=== PATIENT | male | born 1960 | race African-American/Black ===

== ENCOUNTER 2018-03-07 12:40 | Emergency (ER) | payer SELFPAY ==
[2018-03-07] MEDS ORDERED: MAGNESIUM SULFATE/D5W 1 GM/100 ML RTUPB IV ONE (13:11)
[2018-03-07] MEDS ORDERED: METHYLPREDNISOLONE INJ 125 MG/2 ML SDV IV ONE (13:11)
[2018-03-07] MEDS ORDERED: IPRATROPIUM/ALBUTEROL 0.5-2.5 MG/3 ML AMPUL NEB ONE (13:11)
--- NOTE | 2018-03-07 13:13 | ER Document Report ---
ED Medical Screen (RME) - General Chief Complaint: Chest Pain Stated Complaint: COUGH,CONGESTION,SIDE PAIN Time Seen by Provider: 03/07/18 13:08 - HPI Notes: 03/07/18 13:12 History of chronic bronchitis states productive cough chest pain with coughing for the last few days - Related Data Allergies/Adverse Reactions: No Known Allergies Allergy (Verified 07/04/11 17:06) Past Medical History - Past Medical History Cardiac Medical History: Reports: Hx Hypercholesterolemia, Hx Hypertension Pulmonary Medical History: Reports: Hx Bronchitis, Hx Pneumonia - X2 Renal/ Medical History: Denies: Hx Peritoneal Dialysis - Immunizations Hx Diphtheria, Pertussis, Tetanus Vaccination: Yes Review of Systems - Review of Systems Respiratory: Cough, Short of breath, Wheezing -: Yes All other systems reviewed and negative Physical Exam - Vital signs Vitals: Temp Pulse Resp BP Pulse Ox 98.5 F 74 18 152/78 H 97 03/07/18 12:43 03/07/18 12:43 03/07/18 12:43 03/07/18 12:43 03/07/18 12:43 - Respiratory Respiratory status: No respiratory distress Chest status: Nontender Breath sounds: Wheezing - Cardiovascular Rhythm: Regular Heart sounds: Normal auscultation Course - Vital Signs Vital signs: Temp Pulse Resp BP Pulse Ox 98.5 F 74 18 152/78 H 97 03/07/18 12:43 03/07/18 12:43 03/07/18 12:43 03/07/18 12:43 03/07/18 12:43 Doctor's Discharge - Discharge Referrals: LOCALMD,NO [Primary Care Provider] - Follow up as needed
[2018-03-07 13:58] LABS: ANION GAP 14 (5-19); BLOOD UREA NITROGEN 10 mg/dL (7-20); CALCIUM 9.8 mg/dL (8.4-10.2); CARBON DIOXIDE 26 mmol/L (22-30); CHLORIDE 102 mmol/L (98-107); GLUCOSE 97 mg/dL (75-110); SODIUM 141.9 mmol/L (137-145)
[2018-03-07 14:28] LABS: ABSOLUTE EOSINOPHILS # (AUTO) 0.2 10^3/uL (0.0-0.6); ABSOLUTE LYMPHOCYTES (AUTO) 1.4 10^3/uL (0.5-4.7); ABSOLUTE MONOCYTES (AUTO) 0.6 10^3/uL (0.1-1.4); ABSOLUTE NEUT (AUTO) 2.1 10^3/uL (1.7-8.2); BASOPHILS % (AUTO) 0.3 % (0-2); EOSINOPHILS % (AUTO) 4.1 % (0-6); HEMATOCRIT 45.1 % (37.9-51.0); HEMOGLOBIN 14.9 g/dL (13.5-17.0); LYMPHOCYTES % (AUTO) 32.2 % (13-45); MEAN CORPUSCULAR HEMOGLOBIN 27.5 pg (27.0-33.4); MEAN CORPUSCULAR VOLUME 83 fl (80-97); PLATELET COUNT 197 10^3/uL (150-450); RED BLOOD COUNT 5.41 10^6/uL (4.35-5.55); RED CELL DISTRIBUTION WIDTH 14.5 % (11.5-14.0); SEGMENTED NEUTROPHILS % (AUTO) 49.4 % (42-78); TOTAL CELLS COUNTED % (AUTO) 100 %; WHITE BLOOD COUNT 4.2 10^3/uL (4.0-10.5)
--- NOTE | 2018-03-07 14:37 | ER Document Report ---
ED General - General Chief Complaint: Chest Pain Stated Complaint: COUGH,CONGESTION,SIDE PAIN Time Seen by Provider: 03/07/18 13:08 Notes: 57-year-old male to the emergency department for evaluation of shortness of breath and chest pain. Symptoms have been present on and off for several days. Patient has a long-standing history of chronic bronchitis and pneumonia. Has had pneumonia approximately 5 times. Sent over here by his primary care doctor for further evaluate. Currently not on antibiotics. Has had some intermittent fever and chills at home. Pain is located in the central portion of his chest. Hurts to breathe. No prior history of DVT or pulmonary embolism. Patient does smoke. Does have hypertension. Also complaining of a headache earlier today but none present at this time. - HPI Onset: Yesterday Onset/Duration: Gradual, Worse Quality of pain: Sharp Severity: Moderate Pain Level: 3 Associated symptoms: Body/muscle aches, Chest pain, Nonproductive cough, Fever, Hurts to breath, Shortness of breath Exacerbated by: Deep breathing Similar symptoms previously: Yes Recently seen / treated by doctor: Yes - Related Data Allergies/Adverse Reactions: No Known Allergies Allergy (Verified 07/04/11 17:06) Past Medical History - General Information source: Patient - Social History Smoking Status: Current Every Day Smoker Cigarette use (# per day): Yes Frequency of alcohol use: None Drug Abuse: None Lives with: Family Family History: Reviewed & Not Pertinent Patient has suicidal ideation: No Patient has homicidal ideation: No - Past Medical History Cardiac Medical History: Reports: Hx Hypercholesterolemia, Hx Hypertension Pulmonary Medical History: Reports: Hx Bronchitis, Hx Pneumonia - X2 Renal/ Medical History: Denies: Hx Peritoneal Dialysis - Immunizations Hx Diphtheria, Pertussis, Tetanus Vaccination: Yes Review of Systems - Review of Systems Notes: Constitutional: denies: Chills, Diaphoresis,. Complaining of intermittent fevers EENT: denies: Eye discharge, Blurred vision, Tearing, Double vision, Nose congestion, Nose discharge, Throat swelling, Mouth pain Cardiovascular: denies: Palpitations, Heart racing, Orthopnea, Dyspnea, Chest pain Respiratory: Complaining of cough, shortness of breath, wheezing and pain with deep breathing Gastrointestinal: denies: Abdominal pain, Diarrhea, Nausea, Vomiting, Black stools, bright red blood in stool Genitourinary: denies: Burning, Dysuria, Discharge, Frequency, Flank pain, Hematuria Musculoskeletal: denies: Joint pain, Joint swelling, Muscle pain, Muscle stiffness, back pain Hematologic/Lymphatic: denies: Anemia, Easy bleeding, Easy bruising, Blood clots Neurological/Psychological: denies: Confusion, Dementia, Depression, Loss of consciousness Skin: No lesions, no masses, no skin breakdown, no abscesses Physical Exam - Vital signs Vitals: Temp Pulse Resp BP Pulse Ox 98.5 F 74 18 152/78 H 97 03/07/18 12:43 03/07/18 12:43 03/07/18 12:43 03/07/18 12:43 03/07/18 12:43 Interpretation: Hypertensive. No: Hypoxic, Tachypneic, Febrile - General General appearance: Appears well, Alert - HEENT Head: Normocephalic, Atraumatic Eyes: Normal Pupils: PERRL - Respiratory Respiratory status: No respiratory distress Chest status: Nontender Breath sounds: Rhonchi - Faint rhonchi bilaterally Chest palpation: Normal - Cardiovascular Rhythm: Regular Heart sounds: Normal auscultation Murmur: No - Abdominal Inspection: Normal Distension: No distension Bowel sounds: Normal Tenderness: Nontender Organomegaly: No organomegaly - Back Back: Normal, Nontender - Extremities General upper extremity: Normal inspection, Nontender, Normal color, Normal ROM , Normal temperature General lower extremity: Normal inspection, Nontender, Normal color, Normal ROM , Normal temperature, Normal weight bearing. No: Jacek's sign - Neurological Neuro grossly intact: Yes Cognition: Normal Orientation: AAOx4 [place] Coma Scale Eye Opening: Spontaneous [place] Coma Scale Verbal: Oriented [place] Coma Scale Motor: Obeys Commands [place] Coma Scale Total: 15 Speech: Normal Motor strength normal: LUE, RUE, LLE, RLE Sensory: Normal - Psychological Associated symptoms: Normal affect, Normal mood - Skin Skin Temperature: Warm Skin Moisture: Dry Skin Color: Normal Course - Re-evaluation Re-evalutation: 03/07/18 15:10 Laboratory 03/07/18 03/07/18 03/07/18 13:21 13:21 13:21 WBC 4.2 RBC 5.41 Hgb 14.9 Hct 45.1 MCV 83 MCH 27.5 MCHC 33.0 RDW 14.5 H Plt Count 197 Seg Neutrophils % 49.4 Lymphocytes % 32.2 Monocytes % 14.0 H Eosinophils % 4.1 Basophils % 0.3 Absolute Neutrophils 2.1 Absolute Lymphocytes 1.4 Absolute Monocytes 0.6 Absolute Eosinophils 0.2 Absolute Basophils 0.0 Sodium 141.9 Potassium 4.0 Chloride 102 Carbon Dioxide 26 Anion Gap 14 BUN 10 Creatinine 0.93 Est GFR ( Amer) > 60 Est GFR (Non-Af Amer) > 60 Glucose 97 Calcium 9.8 Troponin I < 0.012 03/07/18 16:26 Is well-appearing male in no acute distress. Labs are normal. Chest x-ray revealed abnormal findings so CT scan was ordered. Would like the patient has some chronic bronchitis. Does have multiple small little nodules that will need to be followed. This could represent infection or inflammation. Will start him on antibiotics at this time. Do not feel the patient needs to be admitted. Holding his oxygen saturations above 95%. Will give initial dose of IV antibiotics as well as p.o. azithromycin. Will give another breathing treatment and then will be able to discharge more than likely. 03/07/18 16:31 Chest X-Ray 03/07/18 13:11 IMPRESSION: 1. Mild diffuse bilateral interstitial pulmonary opacity, with a somewhat coarse appearance in the lung bases. This may represent atypical infection or edema, or alternately chronic interstitial change. Consider CT to further evaluate as indicated by clinical signs and symptoms. 2. 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 Chest/Abdomen CTA 03/07/18 15:07 IMPRESSION: 1. Examination of the pulmonary arteries is limited by poor contrast bolus. Within this limitation, no pulmonary embolism in the central or lobar pulmonary arteries. 2. There are scattered small nonspecific infectious or inflammatory centrilobular and clustered pulmonary nodules present bilaterally. 3. There is dependent bibasilar tubular bronchiectasis, bronchial wall thickening, and scarring, findings suggestive chronic or recurrent aspiration. - Vital Signs Vital signs: Temp Pulse Resp BP Pulse Ox 98.5 F 74 18 152/78 H 97 03/07/18 12:43 03/07/18 12:43 03/07/18 12:43 03/07/18 12:43 03/07/18 12:43 - Laboratory Result Diagrams: 03/07/18 13:21 03/07/18 13:21 Laboratory results interpreted by me: 03/07/18 13:21 RDW 14.5 H Monocytes % 14.0 H - EKG Interpretation by Me EKG shows normal: Sinus rhythm, [place], QRS Complexes, ST-T Waves Discharge - Discharge Clinical Impression: Bilateral pneumonia Qualifiers: Pneumonia type: due to unspecified organism Lung location: lower lobe of lung Qualified Code(s): J18.1 - Lobar pneumonia, unspecified organism Condition: Good Disposition: HOME, SELF-CARE Instructions: Reflux Disease (GERD) ([facility]), Pneumonia ([facility]) Additional Instructions: We are going to start her on some antibiotics. He will need breathing treatments every 4 hours while awake. Findings seen on CT scan indicate possible infection versus inflammation versus chronic aspiration. I am going to place you on some proton pump inhibitors (nexium)in the event that you are aspirating at night causing some of the symptoms. You will need to see a lung specialist sooner rather than later. I will give you follow-up information for that. In the event that your symptoms are getting worse it will be very important to return immediately. I highly advised buying an oxygen sensor so that you can know if your oxygen levels are dropping below 90%. If they are, this is a good indication to return for repeat evaluation. Prescriptions: Albuterol Sulfate [Proventil 0.5% Neb 2.5 mg/0.5 ml Vial.neb] 2.5 mg NEB Q4H 5 Days #25 vial.neb Azithromycin [Zithromax 250 mg Tablet] 250 mg PO ASDIR PRN 5 Days #6 tablet PRN Reason: Esomeprazole Magnesium [Nexium 24Hr] 20 mg PO DAILY 30 Days #30 capsule. Nebulizer [Nebulizer Machine] 1 each ASDIR PRN #1 kit PRN Reason: Referrals: YANETH,NO [NO LOCAL MD] - Follow up as needed ALYSON MORRIS MD [ACTIVE STAFF] - Follow up in 1 week
--- NOTE | 2018-03-07 14:47 | RADIOLOGY REPORT (SQ) ---
EXAM DESCRIPTION: CHEST 2 VIEWS COMPLETED DATE/TIME: 03/07/2018 2:36 pm REASON FOR STUDY: weakness COMPARISON: None. EXAM PARAMETERS: NUMBER OF VIEWS: two views TECHNIQUE: Digital Frontal and Lateral radiographic views of the chest acquired. RADIATION DOSE: NA LIMITATIONS: none FINDINGS: LUNGS AND PLEURA: Mild diffuse bilateral interstitial pulmonary opacity, with a somewhat c oarse appearance in the lung bases. MEDIASTINUM AND HILAR STRUCTURES: No masses or contour abnormalities. HEART AND VASCULAR STRUCTURES: Heart normal size. No evidence for failure. BONES: Disc degenerative disease and ankylosis of the thoracic spine. HARDWARE: None in the chest. OTHER: No other significant finding. IMPRESSION: 1. Mild diffuse bilateral interstitial pulmonary opacity, with a somewhat coarse appeara nce in the lung bases. This may represent atypical infection or edema, or alternately chronic inters titial change. Consider CT to further evaluate as indicated by clinical signs and symptoms. 2. Disc degenerative disease and ankylosis of the thoracic spine, suggestive of ankylosing spondylit is. TECHNICAL DOCUMENTATION: JOB ID: [id number] [employer]- All Rights Reserved Reading location - IP/workstation name: [email or web address]
--- NOTE | 2018-03-07 16:01 | RADIOLOGY REPORT (SQ) ---
EXAM DESCRIPTION: CTA CHEST COMPLETED DATE/TIME: 03/07/2018 3:49 pm REASON FOR STUDY: sob, abnormal cxr COMPARISON: None. TECHNIQUE: CT scan of the chest performed using helical scanning technique with dynamic intravenous contrast injection. Images reviewed with lung, soft tissue and bone windows. Reconstructed coronal and sagittal MPR images reviewed. Additional 3 dimensional post-processing performed to develop Maximal Intensity Projection images ([place] P). All images stored on PACS. All CT scanners at this facility use dose modulation, iterative reconstruction, and/or weight based d osing when appropriate to reduce radiation dose to as low as reasonably achievable (ALARA). [facility]: Dose Right [facility]: CareDose [facility]: Dose Right [facility]: Teradose 4D [facility]: FClub CONTRAST TYPE AND DOSE: 86 mL Omnipaque 350 iodinated contrast. Contrast bolus optimized for the pulmonary arteries. Not diagnostic for the aorta. RENAL FUNCTION: GFR > 60. RADIATION DOSE: CT Rad equipment meets quality standard of care and radiation dose reduction techniq ues were employed. CTDIvol: 25.6 - 33.1 mGy. DLP: 945 mGy-cm. . LIMITATIONS: None. FINDINGS: LUNGS AND PLEURA: There are scattered small centrilobular and clustered pulmonary nodules present bilaterally. There is dependent bibasilar tubular bronchiectasis, bronchial wall thickening, and scarring. AORTA AND GREAT VESSELS: No aneurysm. Contrast bolus not optimized for the aorta. HEART: No pericardial effusion. No significant coronary artery calcifications. PULMONARY ARTERIES: Examination of the pulmonary arteries is limited by poor contrast bolus. Within this limitation, no pulmonary embolism in the central or lobar pulmonary arteries. HILAR AND MEDIASTINAL STRUCTURES: No identified masses or abnormal nodes. HARDWARE: None in the chest. UPPER ABDOMEN: No significant findings. Limited exam. THYROID AND OTHER SOFT TISSUES: No masses. No adenopathy. BONES: No acute or significant finding. 3D MIPS: Confirm above findings. OTHER: No other significant finding. IMPRESSION: 1. Examination of the pulmonary arteries is limited by poor contrast bolus. Within this limitation, no pulmonary embolism in the central or lobar pulmonary arteries. 2. There are scattered small nonspecific infectious or inflammatory centrilobular and clustered pulm onary nodules present bilaterally. 3. There is dependent bibasilar tubular bronchiectasis, bronchial wall thickening, and scarring, find ings suggestive chronic or recurrent aspiration. COMMENT: Quality ID # [id number]: Final reports with documentation of one or more dose reduction techniques (e.g., Automated exposure control, adjustment of the mA and/or kV according to patient size, use of iterative reconstruction technique) TECHNICAL DOCUMENTATION: JOB ID: [id number] [employer]- All Rights Reserved Reading location - IP/workstation name: [email or web address]
[2018-03-07] MEDS ORDERED: AZITHROMYCIN 250 MG TABLET PO ONE (16:25)
[2018-03-07] MEDS ORDERED: CEFTRIAXONE INJ 1000 MG VIAL IV ONE (16:25)
[2018-03-07] MEDS ORDERED: ALBUTEROL SULFATE 0.083% NEB 2.5 MG/3 ML AMPUL NEB ONE (16:25)
[2018-03-07 17:43] VITALS: BP 147/80
--- NOTE | 2018-03-08 13:12 | EKG REPORT ---
SEVERITY:- ABNORMAL ECG - SINUS RHYTHM FIRST DEGREE AV BLOCK NONSPECIFIC IVCD WITH LAD : Confirmed by: Renuka Almonte MD 08-Mar-2018 13:11:34
== END 2018-03-07 17:43 | disposition home or self-care (01) ==
LOC: ER 12:40
DX: J18.1 Lobar pneumonia, unspecified organism (principal); R07.9 Chest pain, unspecified; R06.02 Shortness of breath; M79.10 Myalgia, unspecified site; F17.210 Nicotine dependence, cigarettes, uncomplicated; E78.00 Pure hypercholesterolemia, unspecified; I10 Essential (primary) hypertension
CPT/HCPCS: 93005; 94640 ×2; 99285; 96375; 96365; 36415; 87040; 85025; 80048; 84484; 83605; 71046; 71275; 93010; J2930; J3475; J7620

== ENCOUNTER 2018-06-23 15:41 | Observation (INO) | payer MEDICAID ==
[~2018-06-23 15:41] MED LIST: REGADENOSON INJ 0.4 MG/5 ML DISP.SYRIN IV ONE
[2018-06-23] MEDS ORDERED: NITROGLYCERIN 0.4 MG/TAB 25 TAB/BOTTLE SL PRN (16:10)
[2018-06-23] MEDS ORDERED: MORPHINE SULFATE 10 MG/ML INJ IV ONE (16:11)
[2018-06-23] MEDS ORDERED: ONDANSETRON HCL INJ/PF 4 MG/2 ML SDV IV ONE (16:11)
--- NOTE | 2018-06-23 16:30 | RADIOLOGY REPORT (SQ) ---
EXAM DESCRIPTION: CHEST SINGLE VIEW COMPLETED DATE/TIME: 06/23/2018 4:25 pm REASON FOR STUDY: chest pain COMPARISON: Chest film 03/07/2018 CT chest 03/07/2018 EXAM PARAMETERS: NUMBER OF VIEWS: One view. TECHNIQUE: Single frontal radiographic view of the chest acquired. RADIATION DOSE: NA LIMITATIONS: None. FINDINGS: LUNGS AND PLEURA: No opacities, masses or pneumothorax. No pleural effusion. MEDIASTINUM AND HILAR STRUCTURES: No masses. Contour normal. HEART AND VASCULAR STRUCTURES: Heart normal in size. Normal vasculature. BONES: No acute findings. HARDWARE: None in the chest. OTHER: No other significant finding. IMPRESSION: NO ACUTE RADIOGRAPHIC FINDING IN THE CHEST. TECHNICAL DOCUMENTATION: JOB ID: [id number] [employer]- All Rights Reserved Reading location - IP/workstation name: [email or web address]
[2018-06-23 16:37] LABS: ABSOLUTE EOSINOPHILS # (AUTO) 0.1 10^3/uL (0.0-0.6); ABSOLUTE LYMPHOCYTES (AUTO) 1.9 10^3/uL (0.5-4.7); ABSOLUTE MONOCYTES (AUTO) 0.5 10^3/uL (0.1-1.4); ABSOLUTE NEUT (AUTO) 1.9 10^3/uL (1.7-8.2); BASOPHILS % (AUTO) 0.4 % (0-2); EOSINOPHILS % (AUTO) 2.8 % (0-6); HEMATOCRIT 40.9 % (37.9-51.0); HEMOGLOBIN 13.6 g/dL (13.5-17.0); LYMPHOCYTES % (AUTO) 43.5 % (13-45); MEAN CORPUSCULAR HEMOGLOBIN 27.8 pg (27.0-33.4); MEAN CORPUSCULAR HGB CONC 33.2 g/dL (32.0-36.0); MEAN CORPUSCULAR VOLUME 84 fl (80-97); MONOCYTES % (AUTO) 10.9 % (3-13); PLATELET COUNT 203 10^3/uL (150-450); RED BLOOD COUNT 4.89 10^6/uL (4.35-5.55); RED CELL DISTRIBUTION WIDTH 14.3 % (11.5-14.0); SEGMENTED NEUTROPHILS % (AUTO) 42.4 % (42-78); TOTAL CELLS COUNTED % (AUTO) 100 %; WHITE BLOOD COUNT 4.5 10^3/uL (4.0-10.5)
[2018-06-23 16:43] LABS: ALANINE AMINOTRANSFERASE 61 U/L (21-72); ALBUMIN 3.9 g/dL (3.5-5.0); ALKALINE PHOSPHATASE 131 U/L (38-126); ANION GAP 8 (5-19); ASPARTATE AMINO TRANSFERASE 34 U/L (17-59); BILIRUBIN,DIRECT 0.3 mg/dL (0.0-0.4); BILIRUBIN,TOTAL 0.5 mg/dL (0.2-1.3); BLOOD UREA NITROGEN 12 mg/dL (7-20); CALCIUM 10.3 mg/dL (8.4-10.2); CARBON DIOXIDE 28 mmol/L (22-30); CHLORIDE 101 mmol/L (98-107); CREATINE KINASE 155 U/L (55-170); GLUCOSE 90 mg/dL (75-110); POTASSIUM 4.1 mmol/L (3.6-5.0); SODIUM 137.3 mmol/L (137-145); TOTAL PROTEIN 6.8 g/dL (6.3-8.2)
[2018-06-23 16:53] LABS: CREATINE KINASE MB 0.49 ng/mL (<4.55)
[2018-06-23 16:56] LABS: TROPONIN I < 0.012 ng/mL
[2018-06-23] MEDS ORDERED: NITROGLYCERIN 2% OINTMENT 1 GM PACKET TP ONE (19:49)
--- NOTE | 2018-06-23 20:15 | EKG REPORT ---
SEVERITY:- ABNORMAL ECG - SINUS RHYTHM FIRST DEGREE AV BLOCK NONSPECIFIC INTRAVENTRICULAR CONDUCTION DELAY : Confirmed by: Renuka Almonte MD 23-Jun-2018 20:14:39
--- NOTE | 2018-06-23 20:58 | ER Document Report ---
ED General - General Chief Complaint: Chest Pain Stated Complaint: CHEST PAIN Time Seen by Provider: 06/23/18 16:03 Primary Care Provider: JANETTE WAYNE MD [Primary Care Provider] - Follow up as needed - HPI Notes: Patient presents to the emergency department for evaluation of chest pain. He was actually sent in by his rn access's office. Evidently he had an episode on Wednesday, this was entirely relieved by nitroglycerin. Today he had chest pain for about 2 hours. It is in the left chest, nonradiating. He describes as a tightness. He has associated shortness of breath associated with this. He states his been taking his medications as prescribed. Per the PA at his rn access's office, he had an inadequate treadmill stress 1 week ago. They recommend he stay overnight to prep for Lexiscan in the morning. - Related Data Allergies/Adverse Reactions: No Known Allergies Allergy (Verified 07/04/11 17:06) Past Medical History - General Information source: Patient, [facility] - Social History Smoking Status: Never Smoker Frequency of alcohol use: Occasional Family History: Reviewed & Not Pertinent, Hypertension Patient has suicidal ideation: No Patient has homicidal ideation: No - Past Medical History Cardiac Medical History: Reports: Hx Hypercholesterolemia, Hx Hypertension Pulmonary Medical History: Reports: Hx Bronchitis, Hx Pneumonia - X2 Renal/ Medical History: Denies: Hx Peritoneal Dialysis - Immunizations Hx Diphtheria, Pertussis, Tetanus Vaccination: Yes Review of Systems - Review of Systems Constitutional: No symptoms reported EENT: No symptoms reported Cardiovascular: See HPI Respiratory: No symptoms reported Gastrointestinal: No symptoms reported Genitourinary: No symptoms reported Musculoskeletal: No symptoms reported Skin: No symptoms reported Neurological/Psychological: No symptoms reported Physical Exam - Vital signs Vitals: Resp BP Pulse Ox 11 L 142/69 H 100 06/23/18 16:03 06/23/18 16:03 06/23/18 16:03 - Notes Notes: Vital signs reviewed, please refer to chart. Patient is normocephalic, atraumatic. Pupils equal round, reactive to light. Neck is supple without meningismus. Heart is regular rate and rhythm. Lungs are clear to auscultation bilaterally. Abdomen is soft, nontender, normoactive bowel sounds throughout. Extremities without cyanosis, clubbing. No posterior calf tenderness. Peripheral pulses are equal. Skin is warm and dry. Patient is awake, alert, neurological exam is nonfocal. Course - Re-evaluation Re-evalutation: 06/23/18 20:56 Patient presented to the emergency department for evaluation. He complained of a chest tightness. He was medicated with nitroglycerin and morphine. He stated he only had pain was relieved. He received aspirin in route via EMS. Nitroglyc kvng paste placed. Laboratory vesication's were largely unremarkable. EKG is unchanged. Chest x-ray shows nothing acute. Delta troponin was negative. Will contact medicine for further care. - Vital Signs Vital signs: Temp Pulse Resp BP Pulse Ox 98.1 F 13 149/79 H 96 06/23/18 16:33 06/23/18 20:01 06/23/18 20:01 06/23/18 20:01 - Laboratory Result Diagrams: 06/23/18 16:15 06/23/18 16:15 Laboratory results interpreted by me: 06/23/18 06/23/18 16:15 16:15 RDW 14.3 H Calcium 10.3 H Alkaline Phosphatase 131 H - Diagnostic Test Radiology reviewed: Reports reviewed - No acute cardiopulmonary disease - EKG Interpretation by Me Additional EKG results interpreted by me: 06/23/18 20:55 Sinus mechanism with a rate of 68 bpm. Left axis deviation. Right bundle branch block. Compared to prior study from his rn access's office, this is not significantly changed. Discharge - Discharge Clinical Impression: Chest pain Condition: Stable Disposition: ADMITTED OBSERVATION Admitting Provider: [facility] Admitted: Telemetry Referrals: JANETTE WAYNE MD [Primary Care Provider] - Follow up as needed
[2018-06-23] MEDS ORDERED: MAG HYDROX/AL HYDROX/SIMETH SUSP 30 ML UDCUP PO PRN (21:00)
[2018-06-23] MEDS ORDERED: ACETAMINOPHEN 325 MG TABLET PO PRN (21:00)
[2018-06-23] MEDS: PANTOPRAZOLE SODIUM 20 MG TABLET.DR PO SCH (21:36)
[2018-06-23] MEDS ORDERED: ATORVASTATIN CALCIUM 40 MG TABLET PO SCH (22:00)
--- NOTE | 2018-06-24 04:28 | PDOC H&P ---
History of Present Illness Admission Date/PCP: 06/23/18 21:02 JANETTE WAYNE MD Patient complains of: Chest pain History of Present Illness: JANE KHAN is a 57 year old male with a past medical history of COPD, chronic bronchitis, hypertension, obstructive sleep apnea and tobacco. Patient has had an unsuccessful outpatient workup of chest pain on the treadmill but persistent left-sided chest pain which is dull in nature associated with palpitations and shortness of breath prompting reevaluation the emergency room his pain is somewhat reproducible with palpation to the chest wall but there appears to be a second component not addressed by this procedure. Patient states it is alleviated by nitroglycerin and aspirin as well as rubbing on the chest wall. He is currently pain-free and referred to the hospitalist for admission. Past Medical History Cardiac Medical History: Reports: Hyperlipidema, Hypertension Pulmonary Medical History: Reports: Bronchitis, Chronic Obstructive Pulmonary Disease (COPD), Pneumonia - X2, Sleep Apnea GI Medical History: Reports: Gastroesophageal Reflux Disease Musculoskeltal Medical History: Reports: Arthritis Social History Information Source: Patient Smoking Status: Current Every Day Smoker Frequency of Alcohol Use: Rare Drugs: None - Advance Directive Resuscitation Status: Full Code Family History Family History: CAD, Hypertension Parental Family History Reviewed: Yes Children Family History Reviewed: Yes Sibling(s) Family History Reviewed.: Yes Medication/Allergy Home Medications: Albuterol Sulfate [Proventil 0.5% Neb 2.5 mg/0.5 ml Vial.neb] 2.5 mg IH RTQ4 06/23/18 Amlodipine Besylate [Norvasc 10 mg Tablet] 10 mg PO DAILY 06/23/18 Atorvastatin Calcium [Lipitor 40 mg Tablet] 40 mg PO QHS 06/23/18 Esomeprazole Magnesium [Nexium] 20 mg PO Q6AM 06/23/18 Tamsulosin HCl [Flomax] 0.4 mg PO DAILY 06/23/18 Allergies/Adverse Reactions: No Known Allergies Allergy (Verified 07/04/11 17:06) Review of Systems Constitutional: ABSENT: chills, fever(s), headache(s), weight gain, weight loss Eyes: ABSENT: visual disturbances Ears: ABSENT: hearing changes Cardiovascular: ABSENT: chest pain, dyspnea on exertion, edema, orthropnea, palpitations Respiratory: ABSENT: cough, hemoptysis Gastrointestinal: ABSENT: abdominal pain, constipation, diarrhea, hematemesis, hematochezia, nausea, vomiting Genitourinary: ABSENT: dysuria, hematuria Musculoskeletal: ABSENT: joint swelling Integumentary: ABSENT: rash, wounds Neurological: ABSENT: abnormal gait, abnormal speech, confusion, dizziness, focal weakness, syncope Psychiatric: ABSENT: anxiety, depression, homidical ideation, suicidal ideation Endocrine: ABSENT: cold intolerance, heat intolerance, polydipsia, polyuria Hematologic/Lymphatic: ABSENT: easy bleeding, easy bruising Physical Exam Vital Signs: Temp Pulse Resp BP Pulse Ox 98.3 F 60 15 119/62 96 06/24/18 04:00 06/24/18 04:00 06/24/18 04:00 06/24/18 04:00 06/24/18 04:00 Intake & Output 06/22/18 06/23/18 06/24/18 11:59 11:59 11:59 Weight 116.5 kg General appearance: PRESENT: no acute distress, well-developed, well-nourished Head exam: PRESENT: atraumatic, normocephalic Eye exam: PRESENT: conjunctiva pink, EOMI, PERRLA. ABSENT: scleral icterus Ear exam: PRESENT: normal external ear exam Mouth exam: PRESENT: moist, tongue midline Neck exam: ABSENT: carotid bruit, JVD, lymphadenopathy, thyromegaly Respiratory exam: PRESENT: clear to auscultation jenny. ABSENT: rales, rhonchi, wheezes Cardiovascular exam: PRESENT: RRR. ABSENT: diastolic murmur, rubs, systolic murmur Pulses: PRESENT: normal dorsalis pedis pul Vascular exam: PRESENT: normal capillary refill GI/Abdominal exam: PRESENT: normal bowel sounds, soft. ABSENT: distended, guarding, mass, organolmegaly, rebound, tenderness Torso Front/Back Image: 1 - Reproducible chest wall pain to palpation Rectal exam: PRESENT: deferred Extremities exam: PRESENT: full ROM. ABSENT: calf tenderness, clubbing, pedal edema Neurological exam: PRESENT: alert, awake, oriented to person, oriented to place, oriented to time, oriented to situation, CN II-XII grossly intact. ABSENT: motor sensory deficit Psychiatric exam: PRESENT: appropriate affect, normal mood. ABSENT: homicidal ideation, suicidal ideation Skin exam: PRESENT: dry, intact, warm. ABSENT: cyanosis, rash Results Laboratory Results: 06/23/18 16:15 06/23/18 16:15 06/23/18 06/23/18 16:15 16:15 WBC 4.5 RBC 4.89 Hgb 13.6 Hct 40.9 MCV 84 MCH 27.8 MCHC 33.2 RDW 14.3 H Plt Count 203 Seg Neutrophils % 42.4 Lymphocytes % 43.5 Monocytes % 10.9 Eosinophils % 2.8 Basophils % 0.4 Absolute Neutrophils 1.9 Absolute Lymphocytes 1.9 Absolute Monocytes 0.5 Absolute Eosinophils 0.1 Absolute Basophils 0.0 Sodium 137.3 Potassium 4.1 Chloride 101 Carbon Dioxide 28 Anion Gap 8 BUN 12 Creatinine 1.15 Est GFR ( Amer) > 60 Est GFR (Non-Af Amer) > 60 Glucose 90 Calcium 10.3 H Total Bilirubin 0.5 AST 34 ALT 61 Alkaline Phosphatase 131 H Total Protein 6.8 Albumin 3.9 06/23/18 06/23/18 06/23/18 16:15 16:15 20:05 Creatine Kinase 155 CK-MB (CK-2) 0.49 Troponin I < 0.012 < 0.012 06/23/18 06/24/18 20:05 02:31 Creatine Kinase 153 CK-MB (CK-2) Troponin I < 0.012 Impressions: Chest X-Ray 06/23/18 16:03 IMPRESSION: NO ACUTE RADIOGRAPHIC FINDING IN THE CHEST. Assessment and Plan - Diagnosis (1) Chest pain Is this a current diagnosis for this admission?: Yes Plan: Atypical chest pain though the patient's pain is atypical there are multiple risk factors for coronary artery disease and subsequently will observe and evaluation of acute coronary syndrome versus coronary artery disease with anginal equivalents. Cardiac monitoring blood pressure Q6 hours ,TSH, lipid profile, serial cardiac enzymes and cardiac stress test (2) Hypertension Is this a current diagnosis for this admission?: Yes Plan: MARIO inhibitor and nitroglycerin as needed (3) Sleep apnea Is this a current diagnosis for this admission?: Yes Plan: CPAP as tolerated - Time Time Spent with patient: 25-34 minutes
[2018-06-24] MEDS ORDERED: AMLODIPINE BESYLATE 10 MG TABLET PO SCH (10:00)
[2018-06-24] MEDS ORDERED: (PENDING PHARMACY ID) (Esomeprazole Magnesium [Nexium 24hr] 20 MG) PO SCH (10:00)
[2018-06-24] MEDS: PANTOPRAZOLE SODIUM 20 MG TABLET.DR PO SCH (11:11)
[2018-06-24] MEDS ORDERED: REGADENOSON INJ 0.4 MG/5 ML DISP.SYRIN IV ONE (12:03)
[2018-06-24] MEDS ORDERED: METOPROLOL TARTRATE 25 MG TABLET PO ONE (14:48)
--- NOTE | 2018-06-24 15:25 | PDOC DISCHARGE SUMMARY ---
General - Admit/Disc Date/PCP Admission Date/Primary Care Provider: 06/23/18 21:02 JANETTE WAYNE MD Discharge Date: 06/24/18 - Additional Information Resuscitation Status: Full Code Discharge Diet: Cardiac Discharge Activity: Activity As Tolerated, Balance Activity w/Rest Prescriptions: Metoprolol Succinate [Toprol Xl] 25 mg PO DAILY #30 tab.er.24h Home Medications: Albuterol Sulfate [Proventil 0.5% Neb 2.5 mg/0.5 ml Vial.neb] 2.5 mg IH RTQ4 06/23/18 Amlodipine Besylate [Norvasc 10 mg Tablet] 10 mg PO DAILY 06/23/18 Atorvastatin Calcium [Lipitor 40 mg Tablet] 40 mg PO QHS 06/23/18 Esomeprazole Magnesium [Nexium] 20 mg PO Q6AM 06/23/18 Tamsulosin HCl [Flomax] 0.4 mg PO DAILY 06/23/18 Metoprolol Succinate [Toprol Xl] 25 mg PO DAILY #30 tab.er.24h 06/24/18 History of Present Illness Patient complains of: Chest pain History of Present Illness: JANE KHAN is a 57 year old male with a past medical history of COPD, chronic bronchitis, hypertension, obstructive sleep apnea and tobacco. Patient has had an unsuccessful outpatient workup of chest pain on the treadmill but persistent left-sided chest pain which is dull in nature associated with palpitations and shortness of breath prompting reevaluation the emergency room his pain is somewhat reproducible with palpation to the chest wall but there appears to be a second component not addressed by this procedure. Patient states it is alleviated by nitroglycerin and aspirin as well as rubbing on the chest wall. He is currently pain-free and referred to the hospitalist for admission. Hospital Course Hospital Course: Patient was admitted to the hospitalist service on telemetry. He had serial troponins done x3. These were all less than 0.012. He underwent Lexiscan stress test this morning which was read by Dr. Thurman, patient's purse seiner. He states he does have some possible ischemia on the study. He asked that we start the patient on low-dose beta-hannah. He states he can be discharged home on aspirin, beta hannah and statin. He will also be given nitroglycerin to take as needed this was explained how to take by myself and the nursing staff. He will follow-up with Dr. Thurman on Wednesday as scheduled. Dr. Thurman will refer him for cardiac catheterization at that time. Discharged home with family in good condition Physical Exam Vital Signs: Temp Pulse Resp BP Pulse Ox 97.2 F 66 13 136/69 H 97 06/24/18 11:12 06/24/18 11:12 06/24/18 11:12 06/24/18 11:12 06/24/18 11:12 Intake & Output 06/23/18 06/24/18 06/25/18 06:59 06:59 06:59 Intake Total 1306 Balance 1306 Weight 116.5 kg General appearance: PRESENT: no acute distress, morbidly obese, well-developed, well-nourished Head exam: PRESENT: atraumatic, normocephalic Eye exam: PRESENT: conjunctiva pink, EOMI, PERRLA. ABSENT: scleral icterus Ear exam: PRESENT: normal external ear exam Mouth exam: PRESENT: moist, tongue midline Neck exam: ABSENT: carotid bruit, JVD, lymphadenopathy, thyromegaly Respiratory exam: PRESENT: clear to auscultation jenny. ABSENT: rales, rhonchi, wheezes Cardiovascular exam: PRESENT: RRR. ABSENT: diastolic murmur, rubs, systolic murmur Pulses: PRESENT: normal dorsalis pedis pul Vascular exam: PRESENT: normal capillary refill GI/Abdominal exam: PRESENT: normal bowel sounds, soft. ABSENT: distended, guarding, mass, organolmegaly, rebound, tenderness Rectal exam: PRESENT: deferred Extremities exam: PRESENT: full ROM. ABSENT: calf tenderness, clubbing, pedal edema Neurological exam: PRESENT: alert, awake, oriented to person, oriented to place, oriented to time, oriented to situation, CN II-XII grossly intact. ABSENT: motor sensory deficit Psychiatric exam: PRESENT: appropriate affect, normal mood. ABSENT: homicidal ideation, suicidal ideation Skin exam: PRESENT: dry, intact, warm. ABSENT: cyanosis, rash Results Laboratory Results: 06/23/18 16:15 06/23/18 16:15 06/23/18 06/23/18 16:15 16:15 WBC 4.5 RBC 4.89 Hgb 13.6 Hct 40.9 MCV 84 MCH 27.8 MCHC 33.2 RDW 14.3 H Plt Count 203 Seg Neutrophils % 42.4 Lymphocytes % 43.5 Monocytes % 10.9 Eosinophils % 2.8 Basophils % 0.4 Absolute Neutrophils 1.9 Absolute Lymphocytes 1.9 Absolute Monocytes 0.5 Absolute Eosinophils 0.1 Absolute Basophils 0.0 Sodium 137.3 Potassium 4.1 Chloride 101 Carbon Dioxide 28 Anion Gap 8 BUN 12 Creatinine 1.15 Est GFR ( Amer) > 60 Est GFR (Non-Af Amer) > 60 Glucose 90 Calcium 10.3 H Total Bilirubin 0.5 AST 34 ALT 61 Alkaline Phosphatase 131 H Total Protein 6.8 Albumin 3.9 06/23/18 06/23/18 06/23/18 16:15 16:15 20:05 Creatine Kinase 155 CK-MB (CK-2) 0.49 Troponin I < 0.012 < 0.012 06/23/18 06/24/18 06/24/18 20:05 02:31 08:18 Creatine Kinase 153 CK-MB (CK-2) Troponin I < 0.012 < 0.012 Impressions: Chest X-Ray 06/23/18 16:03 IMPRESSION: NO ACUTE RADIOGRAPHIC FINDING IN THE CHEST. Qualifiers - * PATIENT BEING DISCHARGED WITH ANY OF THE FOLLOWING DIAGNOSIS: No Plan Discharge Plan: Home with family Time Spent: Less than 30 Minutes
[2018-06-24 15:41] VITALS: BP 119/62
[2018-06-25] MEDS ORDERED: (PENDING PHARMACY ID) (Esomeprazole Magnesium [Nexium] 20 MG) PO SCH (06:00)
[2018-06-25] MEDS ORDERED: TAMSULOSIN HCL 0.4 MG CAP.SR.24H PO SCH (10:00)
--- NOTE | 2018-06-25 18:13 | DRAGON STRESS TEST REPORT ---
Intravenous Lexiscan Cardiolite stress test using single photon emmision computerized tomography. Date of procedure: 06/24/2018. Ordering Provider: Dr. Jorge Kellogg. Patient's status: In Patient Indication: Chest pain. Coronary risk factors: Age, hypertension, dyslipidemia, and tobacco abuse disorder. Resting EKG: Sinus Rhythm. EKG Within normal limits. Stress EKG: No changes of ischemia. Reason for termination: Protocol. Conclusions: Normal EKG and hemodynamic response to IV Lexiscan. Nuclear data: At rest the patient was given 10.69 millicuries of technetium 99m sestamibi injected intravenously. As per protocol rest non gated SPECT images were obtained. Subsequently the patient was given intravenous Lexiscan at a dose of 0.4 mg in 5 mL intravenously, followed by flush with normal saline. Subsequently the stress dose of 30.1 millicuries of technetium 99m sestamibi was injected intravenously. As per protocol stress gated images were obtained. Nuclear interpretation: Will be done by Dr. Jorge Kellogg, who will interpret the nuclear images. VITALIY
== END 2018-06-24 16:22 | disposition home or self-care (01) ==
LOC: ER 15:41 → EH 21:02 → 4N 22:53
PROVIDERS: ADMIT Internal Medicine; ATTEND Internal Medicine
DX: R07.89 Other chest pain (principal); I10 Essential (primary) hypertension; G47.33 Obstructive sleep apnea (adult) (pediatric); J44.9 Chronic obstructive pulmonary disease, unspecified; R00.2 Palpitations; R06.02 Shortness of breath; E66.01 Morbid (severe) obesity due to excess calories; E78.5 Hyperlipidemia, unspecified; K21.9 Gastro-esophageal reflux disease without esophagitis; F17.200 Nicotine dependence, unspecified, uncomplicated; I45.10 Unspecified right bundle-branch block; Z79.899 Other long term (current) drug therapy; Z23 Encounter for immunization; Z82.49 Family history of ischemic heart disease and other diseases of the circulatory system; Z87.01 Personal history of pneumonia (recurrent)
CPT/HCPCS: 93005; 99285; 96374; 96375; 36415 ×2; 82553; 82550; 85025; 80053; 84484 ×2; 93017; 71045; 78452; 90686; 93010; G0378 ×3; G0008; A9500; J2785; J3490 ×8; J2270; J2405; Q9969; 90471

== ENCOUNTER → 2018-07-05 | Outpatient (CLI) | payer MEDICAID ==
[2018-07-05 09:12] LABS: HEMATOCRIT 43.5 % (37.9-51.0); HEMOGLOBIN 14.2 g/dL (13.5-17.0); MEAN CORPUSCULAR HEMOGLOBIN 27.4 pg (27.0-33.4); MEAN CORPUSCULAR HGB CONC 32.6 g/dL (32.0-36.0); MEAN CORPUSCULAR VOLUME 84 fl (80-97); PLATELET COUNT 198 10^3/uL (150-450); RED BLOOD COUNT 5.19 10^6/uL (4.35-5.55); RED CELL DISTRIBUTION WIDTH 14.6 % (11.5-14.0); WHITE BLOOD COUNT 4.5 10^3/uL (4.0-10.5)
[2018-07-05 09:22] LABS: ANION GAP 5 (5-19); BLOOD UREA NITROGEN 16 mg/dL (7-20); CALCIUM 10.3 mg/dL (8.4-10.2); CARBON DIOXIDE 29 mmol/L (22-30); CHLORIDE 107 mmol/L (98-107); GLUCOSE 111 mg/dL (75-110); POTASSIUM 4.4 mmol/L (3.6-5.0); SODIUM 140.6 mmol/L (137-145)
[2018-07-05 09:28] LABS: INTERNATIONAL RATION (INR) 0.88; PROTHROMBIN TIME 12.4 SEC (11.4-15.4)
[2018-07-05 09:29] LABS: PARTIAL THROMBOPLASTIN TIME 25.2 SEC (23.5-35.8)
== END ==
LOC: OD 07:40
PROVIDERS: ATTEND Internal Medicine Cardiovascular Disease
DX: Z01.810 Encounter for preprocedural cardiovascular examination (principal); R07.89 Other chest pain; Z79.01 Long term (current) use of anticoagulants
CPT/HCPCS: 36415; 80048; 85027; 85610; 85730

== ENCOUNTER 2019-08-17 07:03 | Emergency (ER) | payer SELFPAY ==
[2019-08-17] MEDS ORDERED: PROCHLORPERAZINE EDISYLATE INJ 10 MG/2 ML VIAL IV ONE (08:03)
[2019-08-17] MEDS ORDERED: DIPHENHYDRAMINE HCL 50 MG/ML VIAL IV ONE (08:03)
[2019-08-17] MEDS ORDERED: NORMAL SALINE 1000 ML 1,000 ML IV ONE (08:04)
[2019-08-17] MEDS ORDERED: KETOROLAC TROMETHAMINE INJ/PF 30 MG/1 ML SDV IV ONE (08:04)
--- NOTE | 2019-08-17 08:34 | ER Document Report ---
Entered by CLIFFORD CARTWRIGHT SCRIBE 08/17/19 0758 Acting as scribe for:YO SALAS MD ED Respiratory Problem - General Chief Complaint: Fever Stated Complaint: FEVER Time Seen by Provider: 08/17/19 07:32 Primary Care Provider: JANETTE WAYNE MD [Primary Care Provider] - Follow up as needed Mode of Arrival: Ambulatory Information source: Patient Notes: This 59-year-old male patient presents to the emergency department today with co mplaints of a cough since last week with intermittent fevers as high as 103 per history. Patient states last week on Wednesday he ate "bad chicken" and then took a laxative to "get it out of his system". Patient states he has had diarrhea since taking the laxative. Patient also complains of nasal congestion and a headache. Patient denies any vomiting. TRAVEL OUTSIDE OF THE [place] IN LAST 30 DAYS: No - Related Data Allergies/Adverse Reactions: No Known Allergies Allergy (Verified 07/04/11 17:06) Home Medications: Amlodipine. atoravastatin. Tamsulosin. testostrone. cialis. prilosec. gabapentin Past Medical History - General Information source: Patient - Social History Smoking Status: Current Every Day Smoker Cigarette use (# per day): Yes - 1/3 Chew tobacco use (# tins/day): No Frequency of alcohol use: Occasional Drug Abuse: None Occupation: on [employer] currently, worked at [employer] with: Family Family History: Reviewed & Not Pertinent, CAD, Hypertension Patient has homicidal ideation: No - Past Medical History Cardiac Medical History: Reports: Hx Hypercholesterolemia, Hx Hypertension Pulmonary Medical History: Reports: Hx Bronchitis, Hx COPD, Hx Pneumonia - X2, Hx Sleep Apnea Renal/ Medical History: Reports: Hx Benign Prostatic Hyperplasia GI Medical History: Reports: Hx Gastroesophageal Reflux Disease Musculoskeletal Medical History: Reports Hx Arthritis Past Surgical History: Reports: Hx Orthopedic Surgery - Immunizations Hx Diphtheria, Pertussis, Tetanus Vaccination: No Hx Pneumococcal Vaccination: 03/29/17 Review of Systems - Review of Systems Constitutional: See HPI, Fever EENT: See HPI, Nose congestion Cardiovascular: No symptoms reported Respiratory: See HPI, Cough Gastrointestinal: denies: Vomiting Genitourinary: No symptoms reported Male Genitourinary: No symptoms reported Musculoskeletal: No symptoms reported Skin: No symptoms reported Hematologic/Lymphatic: No symptoms reported Neurological/Psychological: See HPI, Headaches -: Yes All other systems reviewed and negative Physical Exam - Vital signs Vitals: Temp 100.1 F 08/17/19 07:06 - Notes Notes: Physical Exam: General: Alert, appears well. HEENT: Normocephalic. Atraumatic. PERRL. Extraocular movements intact. Oropharynx clear. Occipital muscles are tender with palpation. Posterior cervical musculature tenderness to palpation. Nasal congestion. Neck: Supple. Respiratory: No respiratory distress. Coarse breath sounds bilaterally without wheezing. There is an area of ecchymosis with associated tenderness on palpation over the right lateral chest wall, appears old. Cardiovascular: Regular rate and rhythm. Abdominal: Obese. Non-tender. No distension. Normal Bowel Sounds. Back: No gross abnormalities. Extremities: Moves all four extremities. Upper extremities: Normal inspection. Normal ROM. Lower extremities: Normal inspection. No edema. Normal ROM. Neurological: Normal cognition. AAOx4. Normal speech. Psychological: Normal affect. Normal Mood. Skin: Warm. Dry. Normal color. Course - Re-evaluation Re-evalutation: 08/17/19 10:29 Patient states his headache is better, I did palpate his scalp muscles and they were not tender at this point. He has not been coughing. He was expecting an antibiotic shot because he usually gets one when he has bronchitis. I explained to him that his chest x-ray did not show pneumonia, his white blood cell count was actually low without a shift to suggest a bacterial infection and that antibiotics were not indicated and could be dangerous when used indiscriminately. - Vital Signs Vital signs: Temp Pulse Resp BP Pulse Ox 98.7 F 69 20 118/59 L 91 L 08/17/19 10:27 08/17/19 10:27 08/17/19 10:27 08/17/19 10:27 08/17/19 10:27 - Laboratory Result Diagrams: 08/17/19 09:25 08/17/19 09:25 Laboratory results interpreted by me: 08/17/19 08/17/19 08/17/19 08:37 09:25 09:25 Hgb 13.1 L RDW 14.1 H Plt Count 136 L Sodium 132.5 L ALT 58 H Creatine Kinase 237 H Urine Ketones TRACE H - Diagnostic Test Radiology reviewed: Image reviewed, Reports reviewed - Chest x-ray does not show an acute cardiopulmonary process Discharge - Discharge Clinical Impression: Viral upper respiratory tract infection with cough, Viral bronchitis Condition: Stable Disposition: HOME, SELF-CARE Additional Instructions: Viral Syndrome The physician has diagnosed a viral infection. Viruses not only cause "colds," but can cause many different symptoms including generalized aching, fever, headache, cough, diarrhea, nausea, vomiting, and fatigue. The treatment, for the most part, is simply relief of symptoms. This means that antibiotics are usually not given. Rest, fluids, pain medications and, occasionally, medication for the specific symptoms that are most bothersome will be prescribed. Use good handwashing to avoid passing the virus to others. Shared toys should be cleaned with disinfectant. Clean the toilets, sinks, and counter surfaces in bathrooms. Launder clothing in hot water. Contact the physician if you develop any new or unusual symptoms such as severe headache, stiff neck, high fever, chest pain, productive cough, or shortness of breath. You should be rechecked if you don't see marked improvement within seven to 10 days. Bronchitis You have acute bronchitis. This disease is an infection or inflammation of the air passageways in your lungs. Symptoms usually include cough, low grade fever, shortness of breath, and wheezing. The cough usually persists for a couple of weeks. Most cases of bronchitis get better without antibiotics. We prescribe antibiotics when we believe bacteria are damaging your airways, or if there's high risk the bronchitis will worsen into pneumonia. Increase your fluid intake. A cool mist humidifier may make your lungs more comfortable. An expectorant (cough medicine that loosens phlegm) can help. If you smoke, STOP!!! Recovery from bronchitis can be somewhat slow, but you should see improvement within a day or two. Repeated episodes of bronchitis may result in lung damage -- for example, chronic bronchitis, recurrent pneumonias, or emphysema. Call the doctor if you develop increasing fever, shortness of breath, chest pain, bloody sputum, or otherwise worsen. If you have not improved at all after several days, contact the physician. Take the Tessalon Perles as prescribed to help control your cough. Add Delsym DM or Robitussin-DM to help suppress your cough. Drink plenty of fluids and get plenty of rest. Take Tylenol every 4 hours for fever as needed. Follow-up with your primary care provider if not improving. RETURN TO THE EMERGENCY ROOM IF ANY NEW OR WORSENING SYMPTOMS. Prescriptions: Benzonatate [Tessalon Perles 100 mg Capsule] 100 mg PO ASDIR PRN #30 capsule PRN Reason: Referrals: JANETTE WAYNE MD [Primary Care Provider] - Follow up as needed I personally performed the services described in the documentation, reviewed and edited the documentation which was dictated to the scribe in my presence, and it accurately records my words and actions.
[2019-08-17 08:58] LABS: APPEARANCE,URINE CLEAR; BILIRUBIN,URINE NEGATIVE (NEGATIVE); COLOR,URINE YELLOW; GLUCOSE, URINE NEGATIVE (NEGATIVE); KETONES,URINE TRACE mg/dL (NEGATIVE); LEUKOCYTE ESTERASE,URINE NEGATIVE (NEGATIVE); NITRITE,URINE NEGATIVE (NEGATIVE); PROTEIN,URINE NEGATIVE (NEGATIVE); URINE SPECIFIC GRAVITY 1.013; UROBILINOGEN,URINE NEGATIVE mg/dL (<2.0)
[2019-08-17 09:08] LABS: A TYPE INFLUENZA AG NEGATIVE (NEGATIVE); B INFLUENZA AG NEGATIVE (NEGATIVE)
--- NOTE | 2019-08-17 09:35 | RADIOLOGY REPORT (SQ) ---
EXAM DESCRIPTION: CHEST SINGLE VIEW IMAGES COMPLETED DATE/TIME: 08/17/2019 8:44 am REASON FOR STUDY: Cough, fever, congestion COMPARISON: 06/23/2018. EXAM PARAMETERS: NUMBER OF VIEWS: One view. TECHNIQUE: Single frontal radiographic view of the chest acquired. RADIATION DOSE: NA LIMITATIONS: None. FINDINGS: LUNGS AND PLEURA: Mild chronic interstitial changes. No infiltrates, masses or pneumothor ax. No pleural effusion. MEDIASTINUM AND HILAR STRUCTURES: No masses. Contour normal. HEART AND VASCULAR STRUCTURES: Heart upper limits of normal in size. Normal vasculature. BONES: No acute findings. HARDWARE: None in the chest. OTHER: No other significant finding. IMPRESSION: NO ACUTE RADIOGRAPHIC FINDING IN THE CHEST. TECHNICAL DOCUMENTATION: JOB ID: [id number] 2010 [employer]- All Rights Reserved Reading location - IP/workstation name: [email or web address]
[2019-08-17 09:36] LABS: ABSOLUTE MONOCYTES (AUTO) 0.4 10^3/uL (0.1-1.4); ABSOLUTE NEUT (AUTO) 3.3 10^3/uL (1.7-8.2); BASOPHILS % (AUTO) 0.2 % (0-2); HEMATOCRIT 39.1 % (37.9-51.0); HEMOGLOBIN 13.1 g/dL (13.5-17.0); LYMPHOCYTES % (AUTO) 20.6 % (13-45); MEAN CORPUSCULAR HEMOGLOBIN 27.6 pg (27.0-33.4); MEAN CORPUSCULAR HGB CONC 33.5 g/dL (32.0-36.0); MEAN CORPUSCULAR VOLUME 83 fl (80-97); PLATELET COUNT 136 10^3/uL (150-450); RED BLOOD COUNT 4.74 10^6/uL (4.35-5.55); RED CELL DISTRIBUTION WIDTH 14.1 % (11.5-14.0); SEGMENTED NEUTROPHILS % (AUTO) 71.2 % (42-78); TOTAL CELLS COUNTED % (AUTO) 100 %; WHITE BLOOD COUNT 4.6 10^3/uL (4.0-10.5)
[2019-08-17 09:55] LABS: ALBUMIN 3.7 g/dL (3.5-5.0); ALKALINE PHOSPHATASE 111 U/L (38-126); ANION GAP 7 (5-19); ASPARTATE AMINO TRANSFERASE 47 U/L (17-59); BILIRUBIN,TOTAL 0.7 mg/dL (0.2-1.3); BLOOD UREA NITROGEN 12 mg/dL (7-20); CALCIUM 8.6 mg/dL (8.4-10.2); CARBON DIOXIDE 28 mmol/L (22-30); CHLORIDE 98 mmol/L (98-107); CREATINE KINASE 237 U/L (55-170); GLUCOSE 99 mg/dL (75-110); POTASSIUM 3.6 mmol/L (3.6-5.0); TOTAL PROTEIN 6.7 g/dL (6.3-8.2)
[2019-08-17 10:28] VITALS: BP 118/59
== END 2019-08-17 10:41 | disposition home or self-care (01) ==
LOC: ER 07:03
DX: J06.9 Acute upper respiratory infection, unspecified (principal); R05 Cough; J20.8 Acute bronchitis due to other specified organisms; B97.89 Other viral agents as the cause of diseases classified elsewhere; R50.9 Fever, unspecified; R09.81 Nasal congestion; R51 Headache; Z79.899 Other long term (current) drug therapy; F17.210 Nicotine dependence, cigarettes, uncomplicated; I10 Essential (primary) hypertension; J44.9 Chronic obstructive pulmonary disease, unspecified
CPT/HCPCS: 99283; 96360; 36415; 82550; 85025; 80053; 81001; 87804; 71045; J1200; J1885; J0780; J7030

== ENCOUNTER 2019-08-17 22:46 | Emergency (ER) | payer SELFPAY ==
[2019-08-17] MEDS ORDERED: ACETAMINOPHEN 325 MG TABLET PO ONE (23:19)
[2019-08-17] MEDS ORDERED: IBUPROFEN 600 MG TABLET PO ONE (23:19)
[2019-08-17] MEDS ORDERED: NORMAL SALINE 1000 ML 1,000 ML IV ONE (23:20)
--- NOTE | 2019-08-17 23:25 | ER Document Report ---
ED General - General Chief Complaint: Fever Stated Complaint: HEADACHE/FEVER Time Seen by Provider: 08/17/19 23:03 Primary Care Provider: JANETTE WAYNE MD [Primary Care Provider] - Follow up in 3-5 days Notes: Patient is a 59-year-old male that comes emergency department for chief complaint of fevers, body aches, cough, headaches, and loss of sensation of taste. He states that symptoms started almost a week ago, he states he feels like he has worsened over the past 2 to 3 days. He smokes but denies history of COPD or asthma. He has had pneumonia several times in the past and states this feels similar. He denies specific chest pain or abdominal pain, denies sore throat. He has a history of hypertension, hyperlipidemia, denies diabetes or any cardiovascular history. He denies any obvious sick contacts, his most recent travel was to [place]. TRAVEL OUTSIDE OF THE [place] IN LAST 30 DAYS: No - Related Data Allergies/Adverse Reactions: No Known Allergies Allergy (Verified 07/04/11 17:06) Home Medications: Amlodipine. Tamsulosin. Reflux med Past Medical History - General Information source: Patient - Social History Smoking Status: Current Every Day Smoker Chew tobacco use (# tins/day): No Smoking Education Provided: Yes - < 3 min Frequency of alcohol use: Social Drug Abuse: None Lives with: Family Family History: Reviewed & Not Pertinent, CAD, Hypertension Patient has homicidal ideation: No - Past Medical History Cardiac Medical History: Reports: Hx Hypercholesterolemia, Hx Hypertension Pulmonary Medical History: Reports: Hx Bronchitis, Hx COPD, Hx Pneumonia - X2, Hx Sleep Apnea Renal/ Medical History: Reports: Hx Benign Prostatic Hyperplasia. Denies: Hx Peritoneal Dialysis GI Medical History: Reports: Hx Gastroesophageal Reflux Disease Musculoskeletal Medical History: Reports Hx Arthritis Past Surgical History: Reports: Hx Orthopedic Surgery - Immunizations Hx Diphtheria, Pertussis, Tetanus Vaccination: No Hx Pneumococcal Vaccination: 03/29/17 Review of Systems - Review of Systems Constitutional: See HPI EENT: See HPI Cardiovascular: No symptoms reported Respiratory: See HPI Gastrointestinal: See HPI Genitourinary: No symptoms reported Male Genitourinary: No symptoms reported Musculoskeletal: No symptoms reported Skin: No symptoms reported Hematologic/Lymphatic: No symptoms reported Neurological/Psychological: No symptoms reported Physical Exam - Vital signs Vitals: Temp 101.6 F H 08/17/19 22:46 - Notes Notes: GENERAL: Patient is flushed but he is alert, talkative, and well-appearing HEAD: Normocephalic, atraumatic. EYES: Pupils equal, round, and reactive to light. Extraocular movements intact. ENT: Oral mucosa moist, tongue midline. Oropharynx unremarkable. Airway patent. Nares patent, sinuses non-tender NECK: Full range of motion. Supple. Trachea midline. No lymphadenopathy. No nuchal rigidity. LUNGS: Clear to auscultation bilaterally, no wheezes, rales, or rhonchi. No respiratory distress. Non-tender chest wall. HEART: Regular rate and rhythm. No murmur ABDOMEN: Soft, non-tender. Non-distended. EXTREMITIES: Moves all 4 extremities spontaneously. No edema, normal radial and dorsalis pedis pulses bilaterally. No cyanosis. BACK: no cervical, thoracic, lumbar midline tenderness. No saddle anesthesia, normal distal neurovascular exam. Moves all extremities in full range of motion. NEUROLOGICAL: Alert and oriented x3. Normal speech. Cranial nerves II through XII grossly intact. Strength 5/5 in all extremities. PSYCH: Normal affect, normal mood. SKIN: Flushed Course - Re-evaluation Re-evalutation: Patient is febrile, reports a cough but his lungs are clear on auscultation. Oxygen saturation initially 93%. Patient is not on home oxygen. Patient speaks in full sentences, has no tachypnea or signs of distress. Patient has no nuchal rigidity, has a soft abdomen, he is overall well-appearing. CBC shows some thrombocytopenia but is otherwise unremarkable. Chemistry shows mild transaminitis but is otherwise unremarkable. Blood culture was placed. Lactic acid is not elevated. Blood gas is unremarkable. Urinalysis un remarkable. Chest x-ray shows possible perihilar pneumonia bilaterally. Based on patient's lack of taste, developing symptoms, constellation of symptoms, lab work, evaluation I do have a strong suspicion of coronavirus as the etiology of patient's symptoms. I discussed patient with Dr. Swann. I discussed with patient, he states that he does not want to be admitted to the hospital, he states he would prefer to try this at home and if he worsens he will return. Oxygen saturation rechecked and is now normal, patient is improved and states he feels much better after IV fluids, fever treatment, and he did receive an initial dose of Rocephin. Patient was placed on antibiotic at home, cultures are pending, he was provided with an inhaler and spacer. I did discuss strict return precautions. Patient stable and well-appearing at time of discharge. - Vital Signs Vital signs: Temp Pulse Resp BP Pulse Ox 98.0 F 83 12 134/74 H 96 08/18/19 04:34 08/17/19 23:07 08/18/19 04:01 08/18/19 04:01 08/18/19 04:01 - Laboratory Result Diagrams: 08/17/19 22:58 08/17/19 22:58 Laboratory results interpreted by me: 08/17/19 08/17/19 08/17/19 22:58 22:58 22:58 RDW 14.4 H Plt Count 131 L Sodium 133.1 L AST 67 H ALT 67 H Urine Protein 30 H Urine Blood SMALL H Discharge - Discharge Clinical Impression: Pneumonia Qualifiers: Pneumonia type: due to unspecified organism Laterality: bilateral Lung location: unspecified part of lung Qualified Code(s): J18.9 - Pneumonia, unspecified organism Fever Qualifiers: Fever type: unspecified Qualified Code(s): R50.9 - Fever, unspecified Condition: Stable Disposition: HOME, SELF-CARE Additional Instructions: Your work-up does indicate pneumonia. However because of your symptoms, your labs, and your overall evaluation I highly suspect that you have COVID-19 (the virus causing your symptoms and on top of that developing pneumonia). Please isolate yourself from others, we have tested you and we will call you with results, see additional instructions below. Take your antibiotics as prescribed. Use the inhaler with the spacer as provided if needed for cough/shortness of breath. Take Tylenol for fever and chills, drink plenty fluids, rest. Follow-up with primary care. Stop smoking. Return if you worsen in any way including difficulty breathing, uncontrolled vomiting, developing chest pain, or any other concerning or worsening symptoms. As a person under investigation for COVID-19, the [place] Department of Health and Human Services (division on public health) advises you to adhere to the following guidance until your test results are reported to you. If your test result is positive, you will receive additional information from your provider and your local health department at that time. Remain at home until you are cleared by the health provider or public health authorities. Keep a log of visitors to your home, notify any visitors to your home of your isolation status. If you plan to move to a new address or leave the county, notify the local health department in your County. Call your Doctor or seek care if you have an urgent medical need. Before seeking medical care, call him to get instructions from the provider before arriving at the medical office, clinic, or hospital. Notify them that you are being tested for the virus (COVID-19) so that arrangements can be made, as necessary, to prevent transmission to others in the healthcare setting. Next, notify the local health department in your county. If a medical emergency arises and you need to call 911, inform the first resp onders that you are being tested for the virus that causes COVID-19. Next, notify the local health department in your county. Prescriptions: Promethazine HCl [Phenergan 25 mg Tablet] 25 mg PO Q6H PRN #15 tablet PRN Reason: Doxycycline Hyclate [Vibramycin 100 mg Tablet] 100 mg PO BID 7 Days #14 tablet Forms: Smoking Cessation Education Referrals: JANETTE WAYNE MD [Primary Care Provider] - Follow up in 3-5 days
[2019-08-17 23:29] LABS: ABSOLUTE LYMPHOCYTES (AUTO) 1.3 10^3/uL (0.5-4.7); ABSOLUTE MONOCYTES (AUTO) 0.4 10^3/uL (0.1-1.4); ABSOLUTE NEUT (AUTO) 2.8 10^3/uL (1.7-8.2); BASOPHILS % (AUTO) 0.2 % (0-2); HEMATOCRIT 40.8 % (37.9-51.0); HEMOGLOBIN 13.5 g/dL (13.5-17.0); LYMPHOCYTES % (AUTO) 28.6 % (13-45); MEAN CORPUSCULAR HEMOGLOBIN 27.2 pg (27.0-33.4); MEAN CORPUSCULAR VOLUME 83 fl (80-97); MONOCYTES % (AUTO) 8.4 % (3-13); PLATELET COUNT 131 10^3/uL (150-450); RED BLOOD COUNT 4.94 10^6/uL (4.35-5.55); RED CELL DISTRIBUTION WIDTH 14.4 % (11.5-14.0); SEGMENTED NEUTROPHILS % (AUTO) 62.8 % (42-78); TOTAL CELLS COUNTED % (AUTO) 100 %; WHITE BLOOD COUNT 4.5 10^3/uL (4.0-10.5)
[2019-08-17 23:33] LABS: ALBUMIN 3.6 g/dL (3.5-5.0); ALKALINE PHOSPHATASE 121 U/L (38-126); ANION GAP 7 (5-19); ASPARTATE AMINO TRANSFERASE 67 U/L (17-59); BILIRUBIN,DIRECT 0.1 mg/dL (0.0-0.4); BILIRUBIN,TOTAL 0.7 mg/dL (0.2-1.3); BLOOD UREA NITROGEN 14 mg/dL (7-20); CALCIUM 8.5 mg/dL (8.4-10.2); CARBON DIOXIDE 26 mmol/L (22-30); CHLORIDE 100 mmol/L (98-107); GLUCOSE 108 mg/dL (75-110); POTASSIUM 3.8 mmol/L (3.6-5.0); TOTAL PROTEIN 6.7 g/dL (6.3-8.2)
[2019-08-17 23:50] LABS: APPEARANCE,URINE CLEAR; BILIRUBIN,URINE NEGATIVE (NEGATIVE); COLOR,URINE YELLOW; GLUCOSE, URINE NEGATIVE (NEGATIVE); KETONES,URINE NEGATIVE (NEGATIVE); LEUKOCYTE ESTERASE,URINE NEGATIVE (NEGATIVE); NITRITE,URINE NEGATIVE (NEGATIVE); PROTEIN,URINE 30 mg/dL (NEGATIVE); URINE SPECIFIC GRAVITY 1.016; UROBILINOGEN,URINE NEGATIVE mg/dL (<2.0)
[2019-08-18 00:20] LABS: VENOUS BLOOD BASE EXCESS 0.1 mmol/L; VENOUS BLOOD HCO3 25.4 mmol/L (20-32); VENOUS BLOOD PCO2 43.7 mmHg (35-63); VENOUS BLOOD PH 7.38 (7.30-7.42)
--- NOTE | 2019-08-18 00:44 | RADIOLOGY REPORT (SQ) ---
EXAM DESCRIPTION: XR CHEST 1 VIEW COMPLETED DATE/TME: 08/17/2019 23:20 CLINICAL HISTORY: 59 years Male, cough, fever COMPARISON: 08/17/19 NUMBER OF VIEWS/TECHNIQUE: 1/AP FINDINGS: Small patchy opacity of the medial right lung base. Small streaky opacity at the left lung base. Adequate lung volume, normal cardiac silhouette, and intact bony thorax. IMPRESSION: Small bibasilar pneumonia/atelectasis.
[2019-08-18] MEDS ORDERED: CEFTRIAXONE 1 GM/D5W RTU 1 GM/50 ML RTUPB IV ONE (00:46)
[2019-08-18] MEDS ORDERED: ALBUTEROL SULFATE HFA (90 MCG/PUFF) 8 GM MDI (1 MDI/ER DISP) IH ONE ×3 (01:28→04:01)
[2019-08-18] MEDS ORDERED: ACETAMINOPHEN 325 MG TABLET PO ONE (02:00)
[2019-08-18] MEDS ORDERED: IBUPROFEN 600 MG TABLET PO ONE (02:00)
[2019-08-18] MEDS ORDERED: ALBUTEROL SULFATE HFA (90 MCG/PUFF) 8 GM MDI IH ONE (04:21)
[2019-08-18 04:34] VITALS: BP 134/74
--- NOTE | 2019-08-18 08:03 | EKG REPORT ---
SEVERITY:- ABNORMAL ECG - SINUS RHYTHM FIRST DEGREE AV BLOCK NONSPECIFIC IVCD WITH LAD CONSIDER ANTERIOR INFARCT : Confirmed by: Renuka Almonte MD 18-Aug-2019 08:02:10
== END 2019-08-18 04:34 | disposition home or self-care (01) ==
LOC: ER 22:46
DX: U07.1 COVID-19 (principal); J18.9 Pneumonia, unspecified organism; R50.9 Fever, unspecified; R51 Headache; M79.10 Myalgia, unspecified site; R05 Cough; F17.200 Nicotine dependence, unspecified, uncomplicated; J44.9 Chronic obstructive pulmonary disease, unspecified; Z79.899 Other long term (current) drug therapy; I10 Essential (primary) hypertension
CPT/HCPCS: 93005; 99284; 96361; 96374; 36415; 87040; 83605; 87635; 87070; 81001; 82803; 71045; 93010; J7030; J0696; J3490

== ENCOUNTER 2019-08-29 14:58 | Emergency (ER) | payer SELFPAY ==
--- NOTE | 2019-08-29 15:53 | ER Document Report ---
ED General - General Chief Complaint: Headache Stated Complaint: SHORTNESS OF BREATH,HEADACHE Time Seen by Provider: 08/29/19 15:17 Mode of Arrival: Ambulatory Information source: Patient TRAVEL OUTSIDE OF THE [place] IN LAST 30 DAYS: No - HPI Notes: Patient presents complaining of shortness of breath. He states approximately 3 weeks ago he tested positive for COVID. He states he has had no documented fevers since that time but he does have night sweats almost every night. He states he has had several days where he has not felt short of breath but most days he still does feel short of breath. He states he has continued to smoke cigarettes. He denies any previous history of COPD or congestive heart failure. He states that his shortness of breath has intermittent. It is worse with exertion and better with rest. There is obviously no radiation of the symptoms. He states that he is also had some generalized malaise. He states that he has not been back to work. He states he also has a occipital headache that he has had for 3 to 4 weeks since the diagnosis. Due to the COVID pandemic in this patient being known COVID positive, this int eraction was done by telemedicine. I was present in the same ED unit as the patient however I did not go into his room I used video chat. - Related Data Allergies/Adverse Reactions: No Known Allergies Allergy (Verified 08/29/19 15:23) Past Medical History - General Information source: Patient - Social History Smoking Status: Current Every Day Smoker Frequency of alcohol use: Occasional Drug Abuse: None Family History: Reviewed & Not Pertinent, CAD, Hypertension Patient has homicidal ideation: No - Past Medical History Cardiac Medical History: Reports: Hx Hypercholesterolemia, Hx Hypertension Pulmonary Medical History: Reports: Hx Bronchitis, Hx COPD, Hx Pneumonia - X2, Hx Sleep Apnea Renal/ Medical History: Reports: Hx Benign Prostatic Hyperplasia. Denies: Hx Peritoneal Dialysis GI Medical History: Reports: Hx Gastroesophageal Reflux Disease Musculoskeletal Medical History: Reports Hx Arthritis Past Surgical History: Reports: Hx Orthopedic Surgery - Immunizations Hx Diphtheria, Pertussis, Tetanus Vaccination: No Hx Pneumococcal Vaccination: 03/29/17 Review of Systems - Review of Systems Constitutional: Chills, Malaise. denies: Fever Cardiovascular: denies: Chest pain, Palpitations Respiratory: Cough, Short of breath -: Yes All other systems reviewed and negative Physical Exam - Vital signs Vitals: Temp 98.2 F 08/29/19 15:00 Interpretation: Normal - General General appearance: Appears well, Alert In distress: None - HEENT Head: Atraumatic. No: Racoon's eyes Eyes: No: Periorbital edema Eyelashes: Normal Neck: Other - no jvd - Respiratory Respiratory status: No respiratory distress Breath sounds: Normal - Cardiovascular Rhythm: Regular - on monitor - Abdominal Inspection: Obese Distension: Distended - Back Back: Normal - Extremities General upper extremity: Normal inspection, Normal color, Normal ROM General lower extremity: Normal inspection, Normal color, Normal ROM, Normal weight bearing. No: Jacek's sign - Neurological Neuro grossly intact: Yes Cognition: Normal Orientation: AAOx4 Paden Coma Scale Eye Opening: Spontaneous Jagdeep Coma Scale Verbal: Oriented Jagdeep Coma Scale Motor: Obeys Commands Jagdeep Coma Scale Total: 15 Speech: Normal Motor strength normal: LUE, RUE, LLE, RLE - Psychological Associated symptoms: Normal affect, Normal mood - Skin Skin Temperature: Warm Skin Moisture: Dry Skin Color: Normal Course - Re-evaluation Re-evalutation: 08/29/19 19:06 Patient presents with 2 complaints. First is right posterior neck pain. I do not see any evidence of infection in this area. He does have a metallic foreign body that he states is been there approximately 30 years. He states he is been told previously that this metallic foreign body is next to a nerve. It is possible that over time the scar tissue and fibrosis is now impinging on the nerve. No other obvious explanation for this pain is evident. I do not feel th at a neck CT would be of use at this time as patient has no neurological deficits. I am going to refer him to orthopedic surgery for further evaluation.. Patient also complains of some shortness of breath. He was recently diagnosed with COVID pneumonia approximately 3 weeks ago. This now appears to have resolved on x-ray. He has no fever or elevated white blood cell count here. He has not tachypneic nor does he have labored breathing. He does have inhalers and nebulizers at home that he can use. I do not feel that antibiotics would be helpful at this time. He has no evidence of congestive heart failure. He is instructed to follow-up with his primary care physician this week. A COVID test is also pending. - Vital Signs Vital signs: Temp Pulse Resp BP Pulse Ox 98.2 F 86 18 138/86 H 98 08/29/19 15:34 08/29/19 15:34 08/29/19 15:34 08/29/19 15:34 08/29/19 15:34 - Laboratory Result Diagrams: 08/29/19 17:35 08/29/19 17:35 Laboratory results interpreted by me: 08/29/19 08/29/19 17:35 17:35 RDW 14.8 H Glucose 72 L Calcium 10.6 H ALT 84 H Alkaline Phosphatase 136 H - Diagnostic Test Radiology reviewed: Image reviewed, Reports reviewed Discharge - Discharge Clinical Impression: Neck pain on right side Dyspnea Qualifiers: Dyspnea type: shortness of breath Qualified Code(s): R06.02 - Shortness of breath; R06.00 - Dyspnea, unspecified; R06.01 - Orthopnea Condition: Stable Disposition: HOME, SELF-CARE Instructions: Oral Narcotic Medication ([facility]) Additional Instructions: Please call your primary care physician as soon as possible to arrange for follow-up this week. If you have any further concerns with pain, shortness of breath or anything else and you cannot see your primary physician then please return to the emergency department. Prescriptions: Hydrocodone/Acetaminophen [[place] 5-325 mg Tablet] 1 tab PO Q6 PRN 3 Days #12 tablet PRN Reason: Referrals: [facility] [Provider Group] - Follow up in 3-5 days
--- NOTE | 2019-08-29 16:29 | RADIOLOGY REPORT (SQ) ---
EXAM DESCRIPTION: CHEST SINGLE VIEW IMAGES COMPLETED DATE/TIME: 08/29/2019 4:20 pm REASON FOR STUDY: dyspnea/covid + COMPARISON: 08/18/2019. EXAM PARAMETERS: NUMBER OF VIEWS: One view. TECHNIQUE: Single frontal radiographic view of the chest acquired. RADIATION DOSE: NA LIMITATIONS: None. FINDINGS: LUNGS AND PLEURA: No opacities, masses or pneumothorax. No pleural effusion. MEDIASTINUM AND HILAR STRUCTURES: No masses. Contour normal. HEART AND VASCULAR STRUCTURES: Heart normal in size. Normal vasculature. BONES: No acute findings. HARDWARE: None in the chest. Small metallic pellet in the soft tissues on the right side of the neck . OTHER: No other significant finding. IMPRESSION: NO ACUTE RADIOGRAPHIC FINDING IN THE CHEST. TECHNICAL DOCUMENTATION: JOB ID: [id number] 2010 [employer]- All Rights Reserved Reading location - IP/workstation name: [email or web address]
[2019-08-29] MEDS ORDERED: HYDROCODONE/ACETAMINOPHEN 5-325 MG TABLET PO ONE (17:12)
[2019-08-29 17:50] LABS: ABSOLUTE BASOPHILS # (AUTO) 0.1 10^3/uL (0.0-0.2); ABSOLUTE EOSINOPHILS # (AUTO) 0.1 10^3/uL (0.0-0.6); ABSOLUTE LYMPHOCYTES (AUTO) 3.1 10^3/uL (0.5-4.7); ABSOLUTE MONOCYTES (AUTO) 0.8 10^3/uL (0.1-1.4); BASOPHILS % (AUTO) 0.6 % (0-2); EOSINOPHILS % (AUTO) 1.2 % (0-6); HEMOGLOBIN 14.6 g/dL (13.5-17.0); LYMPHOCYTES % (AUTO) 34.2 % (13-45); MEAN CORPUSCULAR HEMOGLOBIN 27.8 pg (27.0-33.4); MEAN CORPUSCULAR HGB CONC 33.3 g/dL (32.0-36.0); MEAN CORPUSCULAR VOLUME 84 fl (80-97); MONOCYTES % (AUTO) 8.8 % (3-13); PLATELET COUNT 386 10^3/uL (150-450); RED BLOOD COUNT 5.27 10^6/uL (4.35-5.55); RED CELL DISTRIBUTION WIDTH 14.8 % (11.5-14.0); SEGMENTED NEUTROPHILS % (AUTO) 55.2 % (42-78); TOTAL CELLS COUNTED % (AUTO) 100 %
[2019-08-29 18:11] LABS: ALBUMIN 4.4 g/dL (3.5-5.0); ALKALINE PHOSPHATASE 136 U/L (38-126); ANION GAP 8 (5-19); ASPARTATE AMINO TRANSFERASE 43 U/L (17-59); BILIRUBIN,TOTAL 0.7 mg/dL (0.2-1.3); BLOOD UREA NITROGEN 9 mg/dL (7-20); CALCIUM 10.6 mg/dL (8.4-10.2); CARBON DIOXIDE 28 mmol/L (22-30); CHLORIDE 102 mmol/L (98-107); GLUCOSE 72 mg/dL (75-110); POTASSIUM 4.4 mmol/L (3.6-5.0); TOTAL PROTEIN 7.9 g/dL (6.3-8.2)
[2019-08-29 19:46] VITALS: BP 135/79
== END 2019-08-29 19:38 | disposition home or self-care (01) ==
LOC: ER 14:58
DX: U07.1 COVID-19 (principal); R51 Headache; R06.01 Orthopnea; R06.02 Shortness of breath; R53.81 Other malaise; F17.200 Nicotine dependence, unspecified, uncomplicated; E78.00 Pure hypercholesterolemia, unspecified; I10 Essential (primary) hypertension; J44.9 Chronic obstructive pulmonary disease, unspecified
CPT/HCPCS: 36415; 71045; 80053; 83880; 85025; 87635; 99285

== ENCOUNTER → 2020-03-19 | Outpatient (CLI) | payer MEDICARE, MEDICAID ==
--- NOTE | 2020-03-20 14:41 | RADIOLOGY REPORT (SQ) ---
EXAM DESCRIPTION: MRI LT LOWER JOINT WITHOUT IMAGES COMPLETED DATE/TIME: 03/19/2020 5:40 pm REASON FOR STUDY: (M25.562) M25.562 PAIN IN LEFT KNEE. History of dislocation from basketball as [age]-year-old. Left knee pain, burning, decreased range of motion, locking, popping, swelling. Chronic pain. No recent injury. COMPARISON: None. TECHNIQUE: Leftknee images acquired and stored on PACS. Multiplanar images include fat sensitive se quences as T1, water sensitive sequences as FST2 or STIR, cartilage sensitive sequences as FSPD, and gradient echo sequences. LIMITATIONS: None. FINDINGS: JOINT AND BURSAE: There is a small knee joint effusion. No bursal fluid. BONE CORTEX AND MARROW: No alteration of signal to suggest marrow replacement. No worrisome bone lesi ons. No occult fracture. ACL: Intact. No degeneration or ganglion cyst. PCL: Intact. MCL: Intact. No periligamentous edema or fluid. LCL: Intact. No periligamentous edema or fluid. MEDIAL MENISCUS: No tears. No abnormal signal. LATERAL MENISCUS: No tears. No abnormal signal. MEDIAL COMPARTMENT: Cartilage preserved. No bone bruises or reactive marrow edema. No osteophytes. LATERAL COMPARTMENT: Cartilage preserved. No bone bruises or reactive marrow edema. No osteophytes. PATELLA: No chondromalacia. No subchondral cysts. Medial and lateral retinacula intact. EXTENSOR MECHANISM: Intact. Quadriceps and patella tendons normal. SOFT TISSUES: Adjacent muscles and subcutaneous tissues normal. Normal flow void in popliteal artery and vein. OTHER: No other significant finding. IMPRESSION: Small joint effusion. No internal derangement of the knee. TECHNICAL DOCUMENTATION: JOB ID: [id number] [employer]- All Rights Reserved Reading location - IP/workstation name: [email or web address]
== END ==
LOC: RAD 17:50
PROVIDERS: ATTEND Physician Assistant
DX: M25.562 Pain in left knee (principal)